=== PATIENT | female | born 1955 | race Caucasian/White ===

== ENCOUNTER 2019-04-16 07:52 | Day surgery (SDC) | payer MEDICAID ==
[~2019-04-16] VITALS: Ht 157.5 cm; Wt 73.6 kg
[2019-04-16] MEDS ORDERED: SODIUM CHLORIDE 0.9% 1,000 ML IV ONE ×2 (07:53→08:30)
[2019-04-16] MEDS ORDERED: PROPOFOL 1% 20 ML VIAL IVP ONE (12:00)
[2019-04-16] MEDS ORDERED: LIDOCAINE/PF 2% 5 ML VIAL INJ ONE (12:00)
[2019-04-16] MEDS ORDERED: OXYGEN THERAPY IH SCH (20:00)
== END 2019-04-16 11:40 | disposition home or self-care (01) ==
LOC: SURGERY 07:52
PROVIDERS: ATTEND Specialist
DX: D12.5 Benign neoplasm of sigmoid colon (principal); K64.1 Second degree hemorrhoids; K76.0 Fatty (change of) liver, not elsewhere classified; Z79.899 Other long term (current) drug therapy; Z98.890 Other specified postprocedural states
CPT/HCPCS: 45385; 88305; C1769; J2704; J3490; J7030